=== PATIENT | female | born 1990 | race Two or more races ===

== ENCOUNTER 2024-06-15 12:05 | Inpatient (IN) | payer OTHER ==
[~2024-06-15] VITALS: Ht 160 cm; Wt 98.9 kg
[2024-06-15] MEDS ORDERED: 0.9 % SODIUM CHLORIDE 1,000 ML IV STA (13:33)
[2024-06-15] MEDS ORDERED: MEPERIDINE HCL/PF 25 MG/ML VIAL IV ONE (13:45)
[2024-06-15] MEDS ORDERED: BARIUM SULFATE 450 ML ORAL.SUSP PO ONE (14:22)
[2024-06-15 15:12] LABS: PH,URINE 5.5 (5.0-8.0); URINE APPEARANCE Clear; URINE BILIRRUBIN Negative (NEGATIVE); URINE BLOOD Large; URINE COLOR Yellow; URINE GLUCOSE Negative (NEGATIVE); URINE KETONE Negative (NEGATIVE); URINE LEUKOCYTE Negative; URINE NITRATE Negative; URINE PROTEIN Negative (NEGATIVE); URINE UROBILINOGEN 0.2 E.U./dl
[2024-06-15 15:16] LABS: URINE BACTERIA 874.9 uL (0.0-1933); URINE EPITHELIAL CELLS 12.4 uL (0.0-38.8); URINE RBC 116.2 uL (0.0-20.8); URINE WBC 8.7 uL (0.0-23.2)
[2024-06-15 15:31] LABS: CALCIUM 9.2 mg/dL (8.5-10.1); CREATININE SERUM 0.72 mg/dL (0.55-1.02); GFR 92.18; POTASSIUM 3.73 mEq/L (3.5-5.1)
[2024-06-15 15:34] LABS: HEMATOCRIT 39.9 % (36.0-45.00); HEMOGLOBIN 13.5 g/dL (12.0-15.00); MEAN CELL VOLUME 86.3 fL (80.00-100.00); MEAN CORPUSCULAR HEMOGLOBIN 29.1 pg (27.00-32.0); MEAN CORPUSCULAR HGB CONC 33.7 g/dl (32.0-36.0); PLATELET COUNT 326 K/uL (150-450); RED BLOOD COUNT 4.62 M/uL (4.00-6.00); RED CELL DISTRIBUTION WIDTH 13.7 % (11.5-14.5)
[2024-06-15] MEDS ORDERED: METRONIDAZOLE/SODIUM CHLORIDE 100 ML IV SCH (20:33)
[2024-06-15] MEDS ORDERED: MEPERIDINE HCL/PF 25 MG/ML VIAL IM PRN (20:45)
[2024-06-15] MEDS ORDERED: FAMOTIDINE/PF 20 MG in 0.9 % SODIUM CHLORIDE 8 ML IV PUSH SCH (21:00)
[2024-06-15] MEDS ORDERED: CIPROFLOXACIN IN 5 % DEXTROSE 200 ML IV SCH (21:00)
[2024-06-15] MEDS ORDERED: ONDANSETRON HCL 2 MG/ML VIAL IV ONE (21:45)
[2024-06-16 00:40] VITALS: BP 120/79
[2024-06-16 03:00] VITALS: BP 100/67; O2SAT 96
[2024-06-16 08:45] VITALS: BP 117/67; O2SAT 98
[2024-06-16] MEDS ORDERED: DICYCLOMINE HCL 20 MG TABLET PO SCH (13:00)
[2024-06-16 14:47] LABS: HEMATOCRIT 41.9 % (36.0-45.00); HEMOGLOBIN 13.9 g/dL (12.0-15.00); MEAN CELL VOLUME 87.1 fL (80.00-100.00); MEAN CORPUSCULAR HEMOGLOBIN 28.9 pg (27.00-32.0); MEAN CORPUSCULAR HGB CONC 33.1 g/dl (32.0-36.0); PLATELET COUNT 262 K/uL (150-450); RED BLOOD COUNT 4.81 M/uL (4.00-6.00); RED CELL DISTRIBUTION WIDTH 13.7 % (11.5-14.5)
[2024-06-16 14:58] LABS: ERYTHROCYTE SEDIMENTATION RATE 48 mm/hr
[2024-06-16 15:30] LABS: ALBUMIN 3.8 gm/dL (3.4-5.0); ANION GAP 11 (10.0-20.0); BLOOD UREA NITROGEN 12 mg/dL (7-18); BUN CREA RATIO 18 (7.0-25.0); CALCIUM 8.9 mg/dL (8.5-10.1); CARBON DIOXIDE 27 mEq/L (21-32); CHLORIDE 108 mmol/L (98-107); CREATININE SERUM 0.68 mg/dL (0.55-1.02); GFR 98.46; GLUCOSE FASTING 65 mg/dL (65-100); OSMOLALITY SERUM 281 MOSM/KG (275-295); POTASSIUM 3.87 mEq/L (3.5-5.1); SODIUM 142 mmol/L (136-145)
[2024-06-16 16:02] LABS: C-REACTIVE PROTEIN < 0.29 MG/DL (0.00-0.29)
[2024-06-16 16:20] VITALS: BP 110/53; O2SAT 100
[2024-06-17 00:36] VITALS: BP 131/73; O2SAT 97
[2024-06-17 09:43] VITALS: BP 100/67; O2SAT 98
[2024-06-17] MEDS ORDERED: HYOSCYAMINE0.125 M1 SL (12:23)
[2024-06-17] MEDS ORDERED: INTESTINEX680 M1 PO (12:23)
== END 2024-06-17 13:17 | disposition home or self-care (01) | DRG 387 ==
LOC: ER 12:05 → SURH 22:36
PROVIDERS: Emergency Medicine; ADMIT Surgery; ATTEND Surgery
PROC: BW21YZZ Computerized Tomography (CT Scan) of Abdomen and Pelvis using Other Contrast (ICD-10-PCS; principal; 2024-06-15)
DX: K50.90 Crohn's disease, unspecified, without complications (principal); D72.829 Elevated white blood cell count, unspecified; R10.9 Unspecified abdominal pain